=== PATIENT | male | born 1990 | race Caucasian/White ===

== ENCOUNTER 2018-09-06 19:37 | Emergency (ER) | payer MEDICAID ==
[~2018-09-06] VITALS: Ht 162.6 cm; Wt 75.7 kg
[2018-09-06 19:38] VITALS: BP 146/93
--- NOTE | 2018-09-06 20:18 | NUR ---
PT HERE FOR SORE THROAT. PT HAS VISIBLE SORES AND GROWTH ON TOUNGE AND GROWTH. PT REPORTS HE NOTICED WHILE TAKIGN HIS NIGHTLY SHOT OF "CROWN" TO GO TO BED. PT CONNECTED TO MONITORS AND CALL LIGHT IN REACH. NO S/SX AIRWAY OCCLUSION. PT RESTING AND NADN.
[2018-09-06 20:37] LABS: BASOPHILS # (AUTO) 0.05 x10^3/uL (0-0.1); BASOPHILS % (AUTO) 1 % (0-1); EOSINOPHILS # (AUTO) 0.09 x10^3/uL (0-0.4); EOSINOPHILS % (AUTO) 1 % (1-7); LYMPHOCYTES # (AUTO) 2.31 x10^3/uL (1-3.4); LYMPHOCYTES % (AUTO) 25 % (22-44); MD NO; MEAN CORPUSCULAR HEMOGLOBIN 32.6 pg (27.5-34.5); MEAN CORPUSCULAR VOLUME 95.8 fL (81-97); MEAN PLATELET VOLUME 7.1 fL (7.4-10.4); MONOCYTES % (AUTO) 6 % (2-9); NEUTROPHILS # (AUTO) 6.28 x10^3/uL (1.8-6.8); NEUTROPHILS % (AUTO) 68 % (42-75); PLATELET COUNT 180 x10^3/uL (130-400); RED BLOOD COUNT 5.61 x10^6/uL (4.38-5.82); RED CELL DISTRIBUTION WIDTH 12.9 % (9.4-14.8)
[2018-09-06 20:48] LABS: ALBUMIN 4.4 g/dL (3.4-5.0); ANION GAP 4 mmol/L (5-15); CALCIUM 9.7 mg/dL (8.5-10.1); CHLORIDE 108 mmol/L (98-107); CREATININE 1.03 mg/dL (0.7-1.3)
--- NOTE | 2018-09-06 21:10 | NUR ---
Patient/Caregiver given discharge instructions and they have confirmed that they understand the instructions. Patient ambulatory with steady gait.
== END 2018-09-06 21:31 | disposition home or self-care (01) ==
LOC: ED 20:05
DX: K02.9 Dental caries, unspecified (principal); Z86.711 Personal history of pulmonary embolism; Z86.718 Personal history of other venous thrombosis and embolism; Z88.0 Allergy status to penicillin; Z88.5 Allergy status to narcotic agent
CPT/HCPCS: 36415; 80048; 82040; 85025; 99283